=== PATIENT | male | born 1995 | race Caucasian/White ===

== ENCOUNTER 2017-10-06 17:49 | Emergency (ER) | payer OTHER ==
[2017-10-06 17:57] VITALS: BP 136/64; PULSE 71; TEMP 98.2; BMI 25.0
--- NOTE | 2017-10-06 18:38 | PDOC ---
History of Present Illness - General Chief Complaint: Back Pain Stated Complaint: BACK PAIN Time Seen by Provider: 10/06/17 18:27 History Source: Patient Exam Limitations: No Limitations - History of Present Illness Initial Comments: CHIEF COMPLAINT: 22 y/o afebrile male c/o left sided back pain today. 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 He states today he woke up with some left low back pain that is worse with movement and deep inspiration. The patient states he tried taking 400mg of advil early today with little relief. He denies fall, f/c, n/v/d, cough, hemoptysis, CP, SOB, hematuria, dysura, abdominal pain. Past History - Past Medical History Allergies/Adverse Reactions: Allergies Allergy/AdvReac Type Severity Reaction Status Date / Time No Known Allergies Allergy Verified 10/06/17 17:52 COPD: No DVT: No Dementia: No - Immunization History Immunization Up to Date: Yes - Suicide/Smoking/Psychosocial Hx Smoking History: Never smoked Have you smoked in the past 12 months: No Information on smoking cessation initiated: No Hx Alcohol Use: No Drug/Substance Use Hx: No Substance Use Type: None Review of Systems - Review of Systems Able to Perform ROS?: Yes Constitutional: No: Chills, Fever HEENTM: No: Symptoms Reported Respiratory: No: Symptoms reported Cardiac (ROS): No: Symptoms Reported ABD/GI: No: Symptoms Reported : No: Symptoms Reported Musculoskeletal: Yes: Back Pain Integumentary: No: Symptoms Reported Neurological: No: Symptoms reported (left sided; worse with deep breaths and movement) *Physical Exam - Vital Signs Last Vital Signs Temp Pulse Resp BP Pulse Ox 98.2 F 71 18 136/64 100 10/06/17 17:52 10/06/17 17:52 10/06/17 17:52 10/06/17 17:52 10/06/17 17:52 - Physical Exam Comments: The patient is well appearing and ambulatory. General Appearance: Yes: Nourished, Appropriately Dressed. No: Apparent Distress HEENT: positive: EOMI Respiratory/Chest: positive: Lungs Clear. negative: Accessory Muscle Use, Rhonchi, Wheezing Cardiovascular: positive: Regular Rhythm, Regular Rate Gastrointestinal/Abdominal: positive: Other (no flank pain b/l). negative: Tenderness Musculoskeletal: positive: Other (TTP of left lumbar paravertebral muscles. TTP under left posterior lowest rib. No flail chest. No crepitus). negative: CVA Tenderness (R), CVA Tenderness (L), Vertebral Tenderness Neurologic: positive: elevated guard II-XII NML intact, Normal Mood/Affect, Normal Response , Motor Strength 5/5, Other (no saddle anesthesia) Medical Decision Making - Medical Decision Making A/P: 22 y/o afebrile male with back strain most likely secondary to heavy lifting in construction. Plan is as follows: 1. IM toradol Will discharge to home with supportive care instructions and proper lifting techniques. Instructed him to return to the ER with any worsening or concerning symptoms The patient verbalizes understanding of all instructions, has no further questions and is awaiting discharge. *DC/Admit/Observation/Transfer Diagnosis at time of Disposition: Back strain Qualifiers: Encounter type: initial encounter Qualified Code(s): S39.012A - Strain of muscle, fascia and tendon of lower back, initial encounter - Discharge Dispostion Disposition: HOME Condition at time of disposition: Good - Referrals - Patient Instructions Printed Discharge Instructions: DI for Back Strain or Sprain Additional Instructions: Discharge Instructions: -Take 600mg of over the counter Ibuprofen every 6 hours with food for pain -Practice safe lifting techniques -REturn to the ER with any worsening or concerning symptoms. - Post Discharge Activity Forms/Work/School Notes: Back to Work
[2017-10-06] MEDS ORDERED: KETOROLAC TROMETHAMINE 60 MG/2 ML VIAL IM ONE (18:39)
[2017-10-06] MEDS ORDERED: KETOROLAC TROMETHAMINE 60 MG/2 ML VIAL ONE (18:47)
== END 2017-10-06 19:21 | disposition home or self-care (01) ==
LOC: JERFT 17:49
PROC: 3E0333Z Introduction of Anti-inflammatory into Peripheral Vein, Percutaneous Approach (ICD-10-PCS; principal; 2017-10-06)
DX: S39.012A Strain of muscle, fascia and tendon of lower back, initial encounter (principal); X50.0XXA Overexertion from strenuous movement or load, initial encounter; Y93.H3 Activity, building and construction; Y92.69 Other specified industrial and construction area as the place of occurrence of the external cause; Y99.0 Civilian activity done for income or pay
CPT/HCPCS: 96372; 99281-25

== ENCOUNTER 2021-07-13 15:18 | Emergency (ER) | payer OTHER ==
[2021-07-13 15:24] VITALS: BP 131/77; PULSE 92; TEMP 99.6; BMI 29.9
[2021-07-13 16:49] LABS: ALBUMIN 4.4 g/dl (3.4-5.0); BILIRUBIN,TOTAL 0.5 mg/dl (0.2-1); CALCIUM 9.5 mg/dl (8.5-10); CREATININE 0.8 mg/dl (0.55-1.3)
== END 2021-07-13 17:11 | disposition home or self-care (01) ==
LOC: FER 15:18
DX: R42 Dizziness and giddiness (principal); R19.7 Diarrhea, unspecified
CPT/HCPCS: 36415; 80053; 87804; 99283-25; C9803; U0003; U0005